=== PATIENT | female | born 1975 | race Caucasian/White ===

== ENCOUNTER 2019-05-19 07:40 | Emergency (ER) | payer BC, OTHER ==
--- NOTE | 2019-05-19 08:07 | EDM.PDOC ---
ED HPI GENERAL MEDICAL PROBLEM - General Chief Complaint: General Stated Complaint: CHEST PAIN ANXIETY ATTACK Time Seen by Provider: 05/19/19 07:45 Source of Information: Reports: Patient History Limitations: Reports: No Limitations - History of Present Illness INITIAL COMMENTS - FREE TEXT/NARRATIVE: Patient states at work this morning about 6:00 or so she felt kind of chest tightness in the middle of her chest and felt funny and that her heart was beating fast she went ahead and finished a meeting at work then presented here to the ER about 730 she has no chest pain at this moment and states it was about a 3 or 4 at 6 then went away. She denies any shortness of breath nausea vomiting pain radiation She had the same type of episode about a year ago at the house with a little bit of dizziness states she was able to lay down to go back to sleep and it went away after about an hour She recently was started on new blood pressure medication she has starts with an L a week ago She has no past medical conditions takes no medications in the past Smokes occasionally denies any excessive caffeine use or any caffeine use today no energy drinks no recreational drugs Onset: Today, Sudden Duration: Minutes:, Hour(s): Quality: Reports: Other (Chest tightness mid renal) Severity: Mild Associated Symptoms: Reports: Chest Pain. Denies: Confusion, Cough, cough w sputum, Diaphoresis, Fever/Chills, Headaches, Loss of Appetite, Nausea/Vomiting , Seizure, Syncope ED ROS GENERAL - Review of Systems Review Of Systems: See Below Constitutional: Reports: No Symptoms. Denies: Malaise, Weakness, Fatigue, Decreased Appetite, Weight Loss, Weight Gain HEENT: Reports: No Symptoms Respiratory: Reports: No Symptoms Cardiovascular: Reports: Chest Pain, Blood Pressure Problem, Other (States her blood pressures been running high for the last couple of months while she is been seeing orthopedic doctor about her hand recently started 1 week ago medication). Denies: Dyspnea on Exertion, Edema, Lightheadedness, Orthopnea, Palpitations, PND, Syncope Endocrine: Reports: No Symptoms GI/Abdominal: Reports: No Symptoms : Reports: No Symptoms Musculoskeletal: Reports: No Symptoms Skin: Reports: No Symptoms Neurological: Reports: No Symptoms. Denies: Dizziness, Headache, Numbness, Paresthesia, Tingling, Tremors, Trouble Speaking, Weakness, Change in Speech Psychiatric: Reports: No Symptoms. Denies: Agitation, Anxiety Hematologic/Lymphatic: Reports: No Symptoms Immunologic: Reports: No Symptoms ED EXAM, GENERAL - Physical Exam Exam: See Below Exam Limited By: No Limitations General Appearance: Alert, WD/WN, No Apparent Distress Eye Exam: Bilateral Eye: EOMI, PERRL, Proptosis (No proptosis noted) Ears: Normal External Exam, Normal Canal, Hearing Grossly Normal, Normal TMs Nose: Normal Inspection, Normal Mucosa, No Blood Throat/Mouth: Normal Inspection, Normal Lips, Normal Teeth, Normal Gums, Normal Oropharynx, Normal Voice, No Airway Compromise Head: Atraumatic, Normocephalic Neck: Normal Inspection, Supple, Non-Tender, Full Range of Motion. No: Carotid Bruit, Limited Range of Motion Respiratory/Chest: No Respiratory Distress, Lungs Clear, Normal Breath Sounds, No Accessory Muscle Use, Chest Non-Tender Cardiovascular: Normal Peripheral Pulses, Regular Rate, Rhythm, No Edema, No Gallop, No JVD, No Murmur, No Rub, Tachycardia, Other (Initial EKG shows SVT on the rhythm strip there was noted multiple V. tach runs with questionable torsades on one episode but upon exam patient had went back into normal sinus rhythm) GI/Abdominal: Normal Bowel Sounds, Soft, Non-Tender, No Organomegaly, No Distention, No Abnormal Bruit Back Exam: Normal Inspection, Full Range of Motion Extremities: Normal Inspection, Normal Range of Motion, Non-Tender, No Pedal Edema, Normal Capillary Refill Neurological: Alert, Oriented, CN II-XII Intact, Normal Cognition, Normal Gait, Normal Reflexes, No Motor/Sensory Deficits Psychiatric: Normal Affect, Normal Mood Skin Exam: Warm, Dry, Intact, Normal Color, No Rash Course - Vital Signs Text/Narrative:: First EKG shows SVT heart rate of 187 rhythm strip shows runs of SVT with VTach for a brief period which returned to normal sinus rhythm with a vagal maneuver Patient continues to be in normal sinus rhythm CBC BMP TSH T4 EKG troponin all lab work within normal limits patient recheck states she is doing fine on the monitor she is normal sinus rhythm heart rate 98 Essential called at 0 [phone] cardiology consult Spoke with Dr. Loving in the ER will accept transfer line of [id number] Spoke [address] Dr[address] Wright cardiology he will consult salvage determiner [id number] states no need any meds at this time is coherent transfer patient - Orders/Labs/Meds Labs: Laboratory Tests 05/19/19 05/19/19 05/19/19 Range/Units 08:16 08:16 08:16 WBC 7.2 (4.0-10.0) x10^3/uL RBC 4.10 (4.00-5.50) x10^6/uL Hgb 13.7 (12.0-16.0) g/dL Hct 40.6 (33.0-47.0) % MCV 99.0 H (78.0-93.0) fL MCH 33.4 H (26.0-32.0) pg MCHC 33.7 (32.0-36.0) g/dL RDW Coeff of Amandeep 12.0 (10.0-15.0) % Plt Count 170 (130-400) x10^3/uL Neut % (Auto) 74.8 (50.0-80.0) % Lymph % (Auto) 17.6 L (25.0-50.0) % [place] % (Auto) 6.5 (2.0-11.0) % Eos % (Auto) 1.0 (0.0-4.0) % Baso % (Auto) 0.1 L (0.2-1.2) % Sodium 142 (136-145) mmol/L Potassium 3.7 (3.5-5.1) mmol/L Chloride 104 (98-107) mmol/L Carbon Dioxide 25 (21-32) mmol/L Anion Gap 16.7 (10-20) mmol/L BUN 16 (7-18) mg/dL Creatinine 1.2 H (0.55-1.02) mg/dL Est Cr Clr Drug Dosing TNP Estimated GFR (MDRD) 49 Glucose 117 H (74-106) mg/dL Calcium 8.3 L (8.5-10.1) mg/dL Magnesium 1.4 L (1.8-2.4) mg/dL Troponin I 0.018 (<=0.056) ng/mL TSH, Ultra Sensitive 1.500 (0.358-3.74) uIU/mL Departure - Departure Time of Disposition: 09:00 Disposition: DC/Tfer to Acute Hospital 02 Condition: Good Clinical Impression: SVT (supraventricular tachycardia), V-tach - Discharge Information *PRESCRIPTION DRUG MONITORING PROGRAM REVIEWED*: No *COPY OF PRESCRIPTION DRUG MONITORING REPORT IN PATIENT AILYN: No Forms: ED Department Discharge Sepsis Event Note - Focused Exam Date Exam was Performed: 05/19/19 Time Exam was Performed: 08:51 - Problem List & Annotations (1) SVT (supraventricular tachycardia) SNOMED Code(s): 4317889 Code(s): I47.1 - SUPRAVENTRICULAR TACHYCARDIA Status: Acute Current Visit : No (2) V-tach SNOMED Code(s): 19858601, 57648032 Code(s): I47.2 - VENTRICULAR TACHYCARDIA Status: Acute Current Visit: No
[2019-05-19 08:49] LABS: ANION GAP 16.7 mmol/L (10-20); CHLORIDE,CL 104 mmol/L (98-107); SODIUM,NA 142 mmol/L (136-145)
== END 2019-05-19 10:30 | disposition short-term general hospital (02) ==
LOC: VM.ED 07:40
DX: I47.1 Supraventricular tachycardia (principal); I47.2 Ventricular tachycardia
CPT/HCPCS: 36415; 80048; 83735; 84443; 84484; 85025; 93005; 94760; 99285-25

== ENCOUNTER 2019-08-15 11:00 | Emergency (ER) | payer OTHER ==
[2019-08-15] MEDS ORDERED: Sodium Chloride 0.9% 10 ML Syringe FLUSH PRN (11:25)
[2019-08-15] MEDS ORDERED: LORazepam 1 MG Tab PO ONE (11:46)
[2019-08-15 12:13] LABS: ANION GAP 15.6 mmol/L (10-20); CHLORIDE,CL 104 mmol/L (98-107); SODIUM,NA 142 mmol/L (136-145)
--- NOTE | 2019-08-15 12:22 | EDM.PDOC ---
ED HPI GENERAL MEDICAL PROBLEM - General Chief Complaint: General Stated Complaint: LIGHT HEADED, DIZZY Time Seen by Provider: 08/15/19 11:08 Source of Information: Reports: Patient History Limitations: Reports: No Limitations - History of Present Illness INITIAL COMMENTS - FREE TEXT/NARRATIVE: Pt. presents to ER with complaints of L arm heaviness and lightheadedness. Pt. states that the symptoms started around 10:50. Denies any facial numbness. No headache. heaviness is isolated to L upper extremity. Denies any recent head trauma. Speech has been fluent. No nausea or vomiting. Denies any vision loss or change. Pt. states that she also feels anxious. She feels mildly short of breath, and felt the symptoms may have been brought on by some vapors from candles or smoke. She reported feeling much improved on arrival to ER, and states that the symptoms have almost completely resolved on arrival. Pt. was recently diagnosed with SVT and is currently on Toprol XL 50mg daily. She was transferred to [facility] on 05/19 with new onset SVT that resolved with valsalva. She had a positive troponin at that time thought to be secondary to increased myocardial O2 demand from the tachycardia. This trended downward without intervention. Echo showed EF of 65%-70%, mild tricuspid and mitral regurg and trace pulmonic valve regurg. Aortic valve was within normal limits. Comorbidities include hypertension and tobacco abuse disorder. Onset: Today Onset Date: 08/15/19 Location: Reports: Upper Extremity, Left, Generalized - Related Data Allergies Allergy/AdvReac Type Severity Reaction Status Date / Time No Known Allergies Allergy Verified 08/15/19 11:18 Home Meds: Home Meds lisinopriL [Zestril] 10 mg PO DAILY 05/19/19 [History] Metoprolol Succinate [Toprol Xl] 50 mg PO DAILY 08/15/19 [History] Past Medical History Cardiovascular History: Reports: Hypertension, Other (See Below) Other Cardiovascular History: SVT Social & Family History - Tobacco Use Smoking Status *Q: Current Every Day Smoker Years of Tobacco use: 26 Packs/Tins Daily: 0.5 ED ROS GENERAL - Review of Systems Review Of Systems: See Below Constitutional: Reports: No Symptoms HEENT: Reports: No Symptoms Respiratory: Reports: No Symptoms Cardiovascular: Reports: No Symptoms Endocrine: Reports: No Symptoms GI/Abdominal: Reports: No Symptoms : Reports: No Symptoms Musculoskeletal: Reports: No Symptoms Skin: Reports: No Symptoms Neurological: Reports: Dizziness, Other (L arm heaviness.). Denies: Confusion, Headache, Pre-Existing Deficit, Seizure, Syncope, Difficulty Walking Psychiatric: Reports: No Symptoms Hematologic/Lymphatic: Reports: No Symptoms Immunologic: Reports: No Symptoms ED EXAM, GENERAL - Physical Exam Exam: See Below Exam Limited By: No Limitations General Appearance: Alert, WD/WN, No Apparent Distress Eye Exam: Bilateral Eye: EOMI, Normal Fundi, Normal Inspection, PERRL Throat/Mouth: Normal Inspection, Normal Lips, Normal Teeth, Normal Gums, Normal Oropharynx, Normal Voice, No Airway Compromise Head: Atraumatic, Normocephalic Neck: Normal Inspection, Supple, Non-Tender, Full Range of Motion Respiratory/Chest: No Respiratory Distress, Lungs Clear, Normal Breath Sounds, No Accessory Muscle Use, Chest Non-Tender Cardiovascular: Normal Peripheral Pulses, Regular Rate, Rhythm, No Edema, No Gallop, No JVD, No Murmur, No Rub GI/Abdominal: Normal Bowel Sounds, Soft, Non-Tender, No Distention, No Mass (Female) Exam: Deferred Rectal (Female) Exam: Deferred Back Exam: Normal Inspection, Full Range of Motion Extremities: Normal Inspection, Normal Range of Motion, Non-Tender, No Pedal Edema, Normal Capillary Refill Neurological: Alert, Oriented, CN II-XII Intact, Normal Cognition, Normal Gait, Normal Reflexes, No Motor/Sensory Deficits, Other (NIH stroke scale 0. ) Psychiatric: Anxious Skin Exam: Warm, Dry, Intact, Normal Color, No Rash EKG INTERPRETATION Rhythm: NSR Exline: Normal P-Wave: Present QRS: Normal ST-T: Normal QT: Normal Course - Vital Signs Last Recorded V/S: Last Vital Signs Temp 36.9 C 08/15/19 11:05 Pulse 62 08/15/19 12:45 Resp 16 08/15/19 12:45 BP 140/89 08/15/19 12:45 Pulse Ox 99 08/15/19 12:45 - Orders/Labs/Meds Orders: Active Orders 24 hr Category Date Time Status EKG Documentation Completion [RC] STAT Care 08/15/19 11:26 Active Ang Neck [CT] Stat Exams 08/15/19 11:27 Ordered Sodium Chloride 0.9% [Saline Flush] Med 08/15/19 11:25 Active 10 ml FLUSH ASDIRECTED PRN Peripheral IV Insertion Adult [OM.PC] Routine Oth 08/15/19 11:26 Ordered Medication Orders Sodium Chloride (Saline Flush) 10 ml FLUSH ASDIRECTED PRN PRN Reason: Keep Vein Open Labs: Laboratory Tests 08/15/19 08/15/19 08/15/19 Range/Units 11:36 11:36 11:36 WBC 8.0 (4.0-10.0) x10^3/uL RBC 4.03 (4.00-5.50) x10^6/uL Hgb 13.5 (12.0-16.0) g/dL Hct 39.0 (33.0-47.0) % MCV 96.8 H (78.0-93.0) fL MCH 33.5 H (26.0-32.0) pg MCHC 34.6 (32.0-36.0) g/dL RDW Coeff of Amandeep 11.8 (10.0-15.0) % Plt Count 181 (130-400) x10^3/uL Neut % (Auto) 64.7 (50.0-80.0) % Lymph % (Auto) 25.7 (25.0-50.0) % [place] % (Auto) 7.5 (2.0-11.0) % Eos % (Auto) 1.8 (0.0-4.0) % Baso % (Auto) 0.3 (0.2-1.2) % PT 9.3 L (9.5-12.3) SEC INR 0.8 L (2.0-3.5) Sodium 142 (136-145) mmol/L Potassium 3.6 (3.5-5.1) mmol/L Chloride 104 (98-107) mmol/L Carbon Dioxide 26 (21-32) mmol/L Anion Gap 15.6 (10-20) mmol/L BUN 10 (7-18) mg/dL Creatinine 0.8 (0.55-1.02) mg/dL Est Cr Clr Drug Dosing TNP Estimated GFR (MDRD) > 60 Glucose 129 H (74-106) mg/dL Calcium 8.5 (8.5-10.1) mg/dL Corrected Calcium 8.82 (8.5-10.1) mg/dL Magnesium 1.7 L (1.8-2.4) mg/dL Total Bilirubin 0.6 (0.2-1.0) mg/dL AST 18 (15-37) U/L ALT 34 (14-59) U/L Alkaline Phosphatase 49 (46-116) U/L Troponin I < 0.017 (<=0.056) ng/mL C-Reactive Protein < 0.2 (<=0.9) mg/dL Total Protein 7.2 (6.4-8.2) g/dL Albumin 3.6 (3.4-5.0) g/dL Globulin 3.6 Albumin/Globulin Ratio 1.00 TSH, Ultra Sensitive 1.761 (0.358-3.74) uIU/mL Meds: Medications Generic Name Dose Route Start Last Admin Trade Name Freq PRN Reason Stop Dose Admin Sodium Chloride 10 ml 08/15/19 11:25 Saline Flush FLUSH ASDIRECTED PRN Keep Vein Open Discontinued Medications Generic Name Dose Route Start Last Admin Trade Name Freq PRN Reason Stop Dose Admin Iopamidol 100 ml 08/15/19 11:46 08/15/19 13:08 Isovue-300 (61%) IVPUSH 08/15/19 11:47 100 ml ONETIME ONE Administration Lorazepam 1 mg 08/15/19 11:46 Ativan PO 08/15/19 11:47 ONETIME ONE - Radiology Interpretation Free Text/Narrative:: CTA brain without contrast obtained, negative for hemorrhage, large vessel disease, mass, or other pathology. Departure - Departure Time of Disposition: 13:30 Disposition: Home, Self-Care 01 Clinical Impression: Episodic lightheadedness - Discharge Information Instructions: Stroke Prevention, [id number], Warning Signs of a Stroke Referrals: Yaneli Sanches DO [Primary Care Provider] - Forms: ED Department Discharge Additional Instructions: Home to rest. Continue with your current medications. Return to ER if you have numbness/tingling in extremities, difficulty with speech or ambulation, or other worrisome signs and symptoms. Sepsis Event Note - Evaluation Sepsis Screening Result: No Definite Risk - Focused Exam Vital Signs: Vital Signs Temp Pulse Resp BP Pulse Ox 08/15/19 12:45 62 16 140/89 99 08/15/19 11:05 36.9 C 85 18 148/93 H 100 Date Exam was Performed: 08/15/19 Time Exam was Performed: 13:44 - Problem List Review Problem List Initiated/Reviewed/Updated: Yes - My Orders Last 24 Hours: My Active Orders 08/15/19 11:25 Sodium Chloride 0.9% [Saline Flush] 10 ml FLUSH ASDIRECTED PRN 08/15/19 11:26 EKG Documentation Completion [RC] STAT Peripheral IV Insertion Adult [OM.PC] Routine 08/15/19 11:27 Ang Neck [CT] Stat - Assessment/Plan Last 24 Hours: My Active Orders 08/15/19 11:25 Sodium Chloride 0.9% [Saline Flush] 10 ml FLUSH ASDIRECTED PRN 08/15/19 11:26 EKG Documentation Completion [RC] STAT Peripheral IV Insertion Adult [OM.PC] Routine 08/15/19 11:27 Ang Neck [CT] Stat Plan: Discussed findings with patient. Decision was made to discharge the patient at this time. She has been asymptomatic since admission. CTA head and neck are negative for any obvious pathology. Advised patient to continue with her own medication. Follow-up in clinic in 7- 10 days, sooner if any chest pain, shortness of breath, difficulty with speech/ ambulation, numbness/tingling in extremities/face, or other worrisome signs/ symptoms.
[2019-08-15] MEDS: Iopamidol 612 MG/ML 100 ML Bottle IVPUSH ONE (13:08)
--- NOTE | 2019-08-15 13:20 | CT ---
[id number] CT/CTA Head Neck EXAM: CT angiogram head and neck INDICATION: LEFT ARM WEAKNESS. COMPARISON: None. DISCUSSION: Aortic arch: The partially imaged aortic arch is normal in caliber with a conventional branching morphology. Right carotid artery: Normal in caliber. No significant stenosis or other abnormality. Left carotid artery: Normal in caliber. No significant stenosis or other abnormality. Right vertebral artery: Normal in caliber. No significant stenosis or other abnormality. Left vertebral artery: Normal in caliber. No significant stenosis or other abnormality. Basilar artery: Normal in caliber. No significant stenosis or other abnormality. [place]: Conventional morphology. No vessel cut off, significant stenosis, aneurysm or vascular malformation is identified. Dural sinuses, jugular veins and cerebral veins: Limited evaluation of the cerebral veins, dural sinuses and jugular veins is unremarkable. Brain parenchyma: No hydrocephalus or abnormal intracranial enhancement. No precontrast head CT was performed. Cannot evaluate for subarachnoid hemorrhage. No large extra-axial hemorrhage or parenchymal hematoma. Neck soft tissues: Unremarkable. Osseous structures: Straightening of the normal cervical lordosis with mild changes of cervical spondylosis. IMPRESSION: No evidence of large vessel occlusion in the brain. No evidence of carotid stenosis. Juan Rivera MD 08/15/19 [id number] Thank you for allowing us to participate in the care of your patient.
== END 2019-08-15 13:31 | disposition home or self-care (01) ==
LOC: VM.ED 11:00
DX: R42 Dizziness and giddiness (principal); I10 Essential (primary) hypertension; F17.210 Nicotine dependence, cigarettes, uncomplicated; Z79.899 Other long term (current) drug therapy
CPT/HCPCS: 36415; 70496; 70498; 80053; 83735; 84443; 84484; 85025; 85610; 86140; 93005; 99284-25; Q9967